=== PATIENT | female | born 1985 | race Caucasian/White ===

== ENCOUNTER 2017-12-30 06:14 | Inpatient (IN) ==
[2017-12-30] MEDS ORDERED: Albuterol 2.5 MG/3 ML NEBULIZER IH ONE (06:27)
[2017-12-30] MEDS ORDERED: CeFAZolin Syr 2,000MG/20 ML 2,000 MG/20 ML SYRINGE IVPB ONE (06:27)
[2017-12-30] MEDS ORDERED: Ringers Solution, Lactated 1,000 ML IVC SCH ×2 (06:30→11:41)
[2017-12-30] MEDS ORDERED: *HR* FentaNYL (PF) 100 MCG/2 ML VIAL ONE ×2 (07:11→09:50)
[2017-12-30] MEDS ORDERED: *HR* Propofol 200 MG/20 ML VIAL IVP ONE (07:11)
[2017-12-30] MEDS ORDERED: *HR* Midazolam HCl 2 MG/2 ML VIAL ONE (07:11)
[2017-12-30] MEDS ORDERED: Ondansetron 4 MG/2 ML VIAL ONE (07:13)
[2017-12-30] MEDS ORDERED: *HR* Rocuronium Bromide 50 MG/5 ML VIAL ONE (07:13)
[2017-12-30] MEDS ORDERED: Lidocaine -MPF 2% 2 ML VIAL ONE (07:13)
[2017-12-30] MEDS ORDERED: Dexamethasone 4 MG/ML VIAL ONE (07:13)
[2017-12-30] MEDS ORDERED: Lidocaine -MPF 4% 5 ML AMPUL ONE (07:13)
--- NOTE | 2017-12-30 07:26 | Anesthesia Evaluation PreOp ---
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 History: Denies Any Significant HX Other Medical History: GERD, Other (bipolar, anxiety) Anesthesia History: No Prior Anesthetic Complications, Past Anesthesia (Pulm valve replacement, c/s x 2, tubal) Test: Negative (12/24/2017) Alcohol Use: occasionally Drug use: none Medications and Allergies Levonorgestrel [Mirena] 52 mg IY NOW 05/06/17 [History] Metoprolol [Lopressor] 25 mg PO DAILY PRN 05/06/17 [History] Topiramate [Topamax] 200 mg PO HS 05/06/17 [History] diazePAM [Valium] 5 mg PO TID PRN 05/06/17 [History] Cholecalciferol (D-3) [Vitamin D] 1,000 unit PO DAILY 12/30/17 [History] Cyclobenzaprine [Flexeril] 10 mg PO HS PRN 12/30/17 [History] Ibuprofen [Ibuprofen] 800 mg PO TID PRN 12/30/17 [History] [place] Carbonate ER [Eskalith] 900 mg PO HS 12/30/17 [History] 3 Allergy/AdvReac Type Severity Reaction Status Date / Time latex Allergy Rash Verified 10/10/17 10:27 codeine AdvReac Vomiting Verified 12/30/17 07:10 - Meds/Allergy Pre-op Review Medications Reviewed: Yes Allergies Reviewed: Yes Beta Blockers on Current Med List: Yes If Beta Blockers taken, Date/Time (Last Dose taken): takes prn Anesthesia Results - Labs Laboratory Tests 12/24/17 12/24/17 12/24/17 09:51 09:51 09:51 WBC 7.6 Hgb 14.0 Hct 42.7 Plt Count 136 L PT 12.4 H INR 1.1 APTT 30.9 Sodium 138 Potassium 4.6 BUN 8 Creatinine 0.83 Serum , Qual 12/24/17 09:51 WBC Hgb Hct Plt Count PT INR APTT Sodium Potassium BUN Creatinine Serum , Qual Negative - Imaging EKG: report reviewed (10/23/2017 SINUS RHYTHM WITH SHORT [place] INTERVAL RIGHT BUNDLE BRANCH BLOCK [120+ ms QRS DURATION, UPRIGHT V1, 40+ ms S IN I/aVL/V4/V5/ V6]) Additional studies: 06/20/15 ECHO LVEF 55-60% normal LV diasolic function normal LV diastolic function normal RV structure and function mildly dilated LA and RA Mild pulmonic stenosis Mild pulmonic reg. 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
--- NOTE | 2017-12-30 07:30 | History & Physical Report ---
Date of Encounter: 12/30/17 Time of Encounter: 07:29 24 Hour HP Update - Instructions Instructions: If the History and Physical is less than 30 days old and was completed prior to A.M. admission and or procedure and has NOT been updated on calendar day of procedure please complete this update prior to performing procedure. - Update Patient reports changes in Medical Condition: No Changes in examination, assessment, or condition: No Changes in Medication: No Preop tests/diagnostics Reviewed: Yes Surgery Remains Indicated: Yes Consent for Planned Operative Procedure(s) Verified: Yes - Pre-Operative Checklist Preoperative Checklist Indicated: Yes Prophylactic Antibiotic Ordered: Yes Home Medications Include Beta Esther: No Beta Esther Taken Today (Day of Surgery): No Beta Esther Taken Yesterday (Day Prior to Surgery): No Is VTE Prophylaxis Indicated?: Yes
[2017-12-30] MEDS ORDERED: Acetaminophen IV 1,000 MG/100 ML INFUS..BTL ONE (07:47)
[2017-12-30] MEDS ORDERED: ROPIVACAINE HCL/PF 0.5% 30 ML VIAL ONE (08:55)
[2017-12-30] MEDS ORDERED: Neostigmine Methylsulfate 3 MG/3 ML SYRINGE ONE (09:38)
[2017-12-30] MEDS ORDERED: *HR* Promethazine 25 MG/ML VIAL IVP PRN (10:01)
[2017-12-30] MEDS ORDERED: *HR* OxyCODONE/APAP 5/325 TABLET PO PRN (10:01)
[2017-12-30] MEDS ORDERED: *HR* FentaNYL (PF) 100 MCG/2 ML VIAL IVP PRN (10:01)
[2017-12-30] MEDS ORDERED: Ketorolac 30 MG/ML VIAL IVP ONE (10:33)
--- NOTE | 2017-12-30 11:07 | OB/GYN Procedure Note ---
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 An incision was made into the abdomen down through the subcutaneous tissue, muscular fascia and peritoneum. Once inside the abdominal cavity, we observed that the omentum was adherent to the anterior abdominal wall. I suture ligated the adherent part and freed the omentum. I observed the pelvic cavity and noted that the uterus was severely adherent to the anterior abdominal wall and the bladder. I used the bovie and dissected off the uterus from the abdominal wall. I then used a combination of blunt and sharp dissection to free the uterus from the bladder. After the uterus was freed, I grasped on the fundus with a double-toothed tenaculum with upward traction. The round ligaments on either side were identified and individually dissected and ligated with the Ligasure device. This allowed us to then create a bladder flap by both blunt and sharp dissection. The fallopian tube and ovarian ligament were isolated through the broad ligament from the uterine body and ligated with the Ligasure. We then skeletonized the uterine vessels on either side and carefully dissected the bladder flap anteriorly. Posteriorly, the peritoneum was dissected down toward the uterosacral ligaments. The Ligasure device was placed at each isthmic portion of the cervical body junction where the uterine arteries adjoined the uterus. These were clamped, ligated and divided. The remainder of the uterus was then removed by the clamp- cut-ligation technique using #0 Vicryl on all major pedicles. With removal of the uterus, the vaginal cuff was closed in the usual manner. Hemostasis was then inspected and secured throughout the entire area. The ovaries were left in situ. The patient tolerated the operation nicely. There were no complications associated with this surgical procedure to this point. The sponge count was correct times 2 at this time. The To catheter was inspected and clear urine was noted. Having removed all instruments and packs, we then began closure of the abdomen. The fascia was closed with #0 Vicryl in a running continuous manner and the subcutaneous tissue was also closed with #3-0 Vicryl. The skin was closed with #4-0 vicryl. The patient tolerated the operation nicely and was then taken to the Recovery Room in good condition.
--- NOTE | 2017-12-30 11:15 | Anesthesia Evaluation Post Op ---
Date of Encounter: 12/30/17 Time of Encounter: 11:14 - Vital Signs Vital Signs: Vital Signs/O2 Sat/Glucose, Most Recent Temp Pulse Resp BP Pulse Ox 97.6 F 66 12 123/93 98 12/30/17 10:58 12/30/17 11:08 12/30/17 11:08 12/30/17 11:08 12/30/17 11:08 - Lungs Lungs: Clear Ascult./Percussion - Airway Airway: Non-obstructed - Cardiovascular Regular Rate - Mental Status Mental Status: Alert & Oriented, Answers Appropriately - Pain Pain Scale used: Kera (Faces) - Nausea Vomiting Nausea Vomiting: Not Present - Hydration Hydration: NPO - Discharge PostOp Status: Transfer Patient to floor
--- NOTE | 2017-12-30 11:24 | Anesthesia Procedures ---
Date of Encounter: 12/30/17 Time of Encounter: 10:10 Procedures: Anesthesia - Nerve Block Procedure Date: 12/30/17 Time: 10:10 Allergies/Adv Reactions: Latex and codeine Pre-op Diagnosis: Dysfunctional Uterine Bleeding Surgical Procedure: MANUEL Checklist: Correct Patient Identifier, Correct procedure, History checked Blood Thinner: No Monitor Applied: EKG, BP, Pulse Oximetry Supplemental Oxygen via Nasal Cannula (L/min): 2 (ETT) Indication: Post Op Analgesia Pre-op Neuro Deficits: No Block Type: Other (Bilateral Mid-Axillary TAP Blocks) Catheter placed: No Sterile Technique: Yes Ultrasound used: Yes Anatomy identified: Yes Visual spread of Local: Yes Neuro Stimulation: No Blood on Needle Aspiration: No Smooth Injection of Local: Yes Pain with Injection of Local: No (Unable to assess pt under GA) Prep: Chlorhexadine Needle: 21 x 100 mm Stimuplex Local: Ropivacaine (30mL of 0.25% Ropivacaine with 4mg Decadron admnistered on R and L Side (60mL Total)) Volume (cc): 60 Number of Attempts: 1 Complications: None/effective block Vitals: Refer to anesthesia documentation sheet.
[2017-12-30] MEDS ORDERED: Ondansetron 4 MG/2 ML VIAL IVP PRN (11:41)
[2017-12-30] MEDS ORDERED: diazePAM 5 MG TABLET PO PRN (11:41)
[2017-12-30] MEDS ORDERED: Naloxone 0.4 MG/ML INJ IVP PRN (11:41)
[2017-12-30] MEDS: *HR* HYDROmorphone (PF) 1 MG/ML SYRINGE IVP PRN ×3 (11:59→18:39)
[2017-12-30] MEDS: *HR* OxyCODONE/APAP 5/325 TABLET PO PRN (15:02)
[2017-12-30] MEDS: Lithium Carbonate ER 450 MG TABLET.ER PO SCH (21:03)
[2017-12-30] MEDS: Topiramate 100 MG TABLET PO SCH (21:03)
[2017-12-31] MEDS: *HR* HYDROmorphone (PF) 1 MG/ML SYRINGE IVP PRN (00:24)
[2017-12-31] MEDS ORDERED: Simethicone 80 MG TAB.CHEW PO PRN (00:40)
[2017-12-31] MEDS ORDERED: *HR* Promethazine 25 MG/ML VIAL IVP PRN (05:25)
[2017-12-31] MEDS: *HR* OxyCODONE/APAP 5/325 TABLET PO PRN ×3 (05:42→18:43)
[2017-12-31 05:56] LABS: Basophils % 0.1 %; Immature Granulocytes % 0.5 % (0-4); Lymphocytes % 4.9 %; Mean Corpuscular HGB Conc 32.2 g/dL (31.6-35.5); Mean Corpuscular Hemoglobin 30.9 pg (28.0-33.3); Mean Platelet Volume 12.8 fL (9.4-12.4); Monocytes # 0.8 K/mcL (0.0-1.3); Monocytes % 4.1 %; Neutrophils # 17.6 K/mcL (1.6-8.9); Platelet Count 162 K/mcL (140-400); Red Blood Count 3.75 M/mcL (3.82-4.97); Red Cell Distribution Width 14.1 % (11.5-14.5); Segmented Neutrophils % 90.4 %
[2017-12-31 06:06] LABS: Hemoglobin 11.6 g/dL (11.5-15.4)
--- NOTE | 2017-12-31 06:53 | OB/GYN Progress Note ---
Date of Encounter: 12/31/17 Time of Encounter: 06:50 - Assessment and Plan (1) Status post hysterectomy Current Visit: Yes Status: Acute s/p MANUEL for AUB, pelvic pain, pelvic adhesive disease, POD#1, doing well, patient has not been able to ambulate much, encouraged to ambulate, good urine output, ok for breakfast, Toradol on board and after breakfast, can switch to PO meds, anticipate discharge tomorrow Subjective - Subjective Patient reports: voiding normally, pain well controlled Objective - Vital Signs Latest vital signs: Vital Signs Temp Pulse Pulse Resp BP Pulse Ox 12/31/17 05:00 97.4 F L 84 84 16 112/74 100 12/31/17 00:24 16 12/30/17 23:30 97.9 F 80 14 107/74 99 12/30/17 20:45 97.6 F 83 14 115/75 97 12/30/17 13:30 98.6 F 81 81 12 121/75 97 12/30/17 12:30 98.3 F 84 14 112/75 95 12/30/17 12:00 98.6 F 76 12 117/83 97 12/30/17 11:30 99.0 F 71 12 118/85 98 12/30/17 11:08 66 12 123/93 98 12/30/17 10:58 97.6 F 71 16 126/88 97 12/30/17 10:48 68 16 128/88 96 12/30/17 10:38 71 16 132/95 100 12/30/17 10:28 98.7 F 64 16 130/89 100 Intake and Output 12/30/17 12/30/17 12/31/17 15:59 23:59 07:59 Intake Total 20 / 20 720 / 720 Output Total 510 / 510 1550 / 1550 1050 / 1050 Balance -490 / -490 -830 / -830 -1050 / -1050 Intake: IV Fluids 20 / 20 Ancef Syringe 2,000 MG/20 ML 2, 20 / 20 000 mg In 20 ml @ 200 mls/hr IVPB PREOP ONE Rx#:[id number] Oral 720 / 720 Output: Estimated Blood Loss 110 / 110 Catheter 400 / 400 1550 / 1550 1050 / 1050 Other: Weight 73.164 kg - I&O's I&O's: Intake & Output 08/21/18 08/22/18 08/23/18 08/24/18 23:59 23:59 23:59 23:59 Intake Total 740 / 740 Output Total 2059 1050 / 1050 Balance -1320 / -1320 -1050 / -1050 Weight 73.164 kg - Exam Extremities: Present: normal Abdomen: Present: soft Incision OB: Present: intact, dressed - Labs Labs: Abnormal lab results WBC 19.5 K/mcL (4.3-11.1) H D 12/31/17 05:30 RBC 3.75 M/mcL (3.82-4.97) L 12/31/17 05:30 MPV 12.8 fL (9.4-12.4) H 12/31/17 05:30 Neutrophils # 17.6 K/mcL (1.6-8.9) H 12/31/17 05:30 Consult Discharge Plan - Plan Referrals: Shawna Spicer [Primary Care Provider] -
[2017-12-31] MEDS ORDERED: Ketorolac 30 MG/ML VIAL IVP ONE (07:04)
[2017-12-31] MEDS: Ibuprofen 600 MG TABLET PO PRN ×2 (14:30→20:11)
[2017-12-31] MEDS: Lithium Carbonate ER 450 MG TABLET.ER PO SCH (20:11)
[2017-12-31] MEDS: Topiramate 100 MG TABLET PO SCH (20:12)
[2018-01-01] MEDS: *HR* OxyCODONE/APAP 5/325 TABLET PO PRN ×2 (01:20→08:13)
[2018-01-01] MEDS: Ibuprofen 600 MG TABLET PO PRN (05:18)
--- NOTE | 2018-01-01 10:29 | Discharge Summary ---
Date of Encounter: 01/01/18 Time of Encounter: 10:28 - Discharge Diagnosis (1) Status post hysterectomy Priority: Primary Status: Acute Comments: s/p MANUEL, POD#2, patient is doing very well, ambulating, tolerating PO, good urine output, ok for discharge - Discharge Medications Home Medications: Levonorgestrel [Mirena] 52 mg IY NOW 05/06/17 [History] Metoprolol [Lopressor] 25 mg PO DAILY PRN 05/06/17 [History] Topiramate [Topamax] 200 mg PO HS 05/06/17 [History] diazePAM [Valium] 5 mg PO TID PRN 05/06/17 [History] Cholecalciferol (D-3) [Vitamin D] 1,000 unit PO DAILY 12/30/17 [History] Cyclobenzaprine [Flexeril] 10 mg PO HS PRN 12/30/17 [History] Ibuprofen [Ibuprofen] 800 mg PO TID PRN 12/30/17 [History] [place] Carbonate ER [Eskalith] 900 mg PO HS 12/30/17 [History] Allergies/Adverse Reactions: 3 Allergy/AdvReac Type Severity Reaction Status Date / Time latex Allergy Rash Verified 10/10/17 10:27 codeine AdvReac Vomiting Verified 12/30/17 07:10 Data Procedures and tests throughout hospitalization: Laboratory Tests 12/31/17 05:30 WBC 19.5 H D RBC 3.75 L Hgb 11.6 D Hct 36.0 MCV 96.0 MCH 30.9 MCHC 32.2 RDW 14.1 Plt Count 162 MPV 12.8 H Immature Gran % 0.5 Seg Neutrophils % 90.4 Lymphocytes % 4.9 Monocytes % 4.1 Eosinophils % 0.0 Basophils % 0.1 Neutrophils # 17.6 H Lymphocytes # 1.0 Monocytes # 0.8 Eosinophils # 0.0 Basophils # 0.0 Date of admission: 12/30/17 11:41 Primary care physician: Shawna Spicer - Patient Status Disposition: Home, Self-Care Condition: Good Functional capacity at discharge: independent ambulation Overall status at discharge: patient is progressing back to baseline - Discharge Instructions Follow Up With: Shawna Spicer [Primary Care Provider] - Hospital 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
== END 2018-01-01 12:00 | disposition home or self-care (01) | DRG 513 ==
LOC: SAMDAY 06:14 → 1NENUOBS 11:41
PROVIDERS: ADMIT Student in an Organized Health Care Education/Training Program; ATTEND Student in an Organized Health Care Education/Training Program

== ENCOUNTER 2020-06-29 23:12 | Observation (INO) ==
[2020-06-30 00:03] LABS: Basophils # 0.1 K/mcL (0.0-0.2); Basophils % 0.7 %; Eosinophils # 0.1 K/mcL (0.0-0.6); Eosinophils % 0.6 %; Hematocrit 43.5 % (35.3-44.9); Hemoglobin 14.6 g/dL (11.5-15.4); Immature Granulocytes % 0.7 % (0-4); Mean Corpuscular HGB Conc 33.6 g/dL (31.6-35.5); Mean Corpuscular Hemoglobin 31.4 pg (28.0-33.3); Mean Corpuscular Volume 93.5 fL (83.0-100.0); Mean Platelet Volume 12.1 fL (9.4-12.4); Monocytes # 0.5 K/mcL (0.0-1.3); Monocytes % 5.7 %; Neutrophils # 5.9 K/mcL (1.6-8.9); Platelet Count 172 K/mcL (140-400); Red Blood Count 4.65 M/mcL (3.82-4.97); Red Cell Distribution Width 12.8 % (11.5-14.5); Segmented Neutrophils % 69.3 %; White Blood Count 8.5 K/mcL (4.3-11.1)
[2020-06-30 00:13] LABS: BUN/Creatinine Ratio 16 (6-26); Blood Urea Nitrogen 13 mg/dL (6-20); Carbon Dioxide 19 mEq/L (23-29); Chloride 106 mEq/L (98-107); Glucose 109 mg/dL (70-105); Osmolality,Calculated 287 (280-300); Potassium 3.7 mEq/L (3.5-5.1); Sodium 138 mEq/L (136-145); eGFR For African Americans > 60 (> 60); eGFR For Non-African Americans > 60 (> 60)
[2020-06-30 00:14] LABS: Troponin I < 0.03 ng/mL (< 0.04)
[2020-06-30] MEDS ORDERED: 0.9 % Sodium Chloride 1,000 ML IVC ONE (00:15)
[2020-06-30] MEDS ORDERED: Ondansetron 4 MG/2 ML VIAL IVP PRN (03:33)
[2020-06-30] MEDS ORDERED: Acetaminophen 325 MG TABLET PO PRN (03:33)
[2020-06-30] MEDS ORDERED: Naloxone 0.4 MG/ML INJ IVP PRN (03:33)
[2020-06-30 07:18] VITALS: BP 111/75
[2020-06-30 07:33] LABS: Basophils % 0.7 %; Eosinophils # 0.1 K/mcL (0.0-0.6); Eosinophils % 0.8 %; Hemoglobin 13.9 g/dL (11.5-15.4); Immature Granulocytes % 0.7 % (0-4); Lymphocytes # 1.1 K/mcL (0.6-4.6); Lymphocytes % 18.7 %; Mean Corpuscular HGB Conc 33.1 g/dL (31.6-35.5); Mean Corpuscular Hemoglobin 31.2 pg (28.0-33.3); Mean Corpuscular Volume 94.4 fL (83.0-100.0); Mean Platelet Volume 12.4 fL (9.4-12.4); Monocytes # 0.4 K/mcL (0.0-1.3); Monocytes % 7.3 %; Neutrophils # 4.3 K/mcL (1.6-8.9); Platelet Count 144 K/mcL (140-400); Red Blood Count 4.45 M/mcL (3.82-4.97); Red Cell Distribution Width 12.8 % (11.5-14.5); Segmented Neutrophils % 71.8 %
[2020-06-30 07:54] LABS: BUN/Creatinine Ratio 17 (6-26); Blood Urea Nitrogen 12 mg/dL (6-20); Carbon Dioxide 21 mEq/L (23-29); Chloride 109 mEq/L (98-107); Glucose 89 mg/dL (70-105); Osmolality,Calculated 285 (280-300); Phosphorous 2.8 mg/dL (2.7-4.5); Potassium 4.3 mEq/L (3.5-5.1); Sodium 138 mEq/L (136-145); Troponin I < 0.03 ng/mL (< 0.04); eGFR For African Americans > 60 (> 60); eGFR For Non-African Americans > 60 (> 60)
[2020-06-30 09:26] LABS: Thyroid Stimulating Hormone 4.295 mcIU/mL (0.340-5.600)
== END 2020-06-30 10:02 | disposition home or self-care (01) ==
LOC: 3BNU 23:12 → EMEROOARM 23:12 → SUATTDRO 06-30 02:31 → 3BNU 06-30 02:48
PROVIDERS: ADMIT Internal Medicine; ATTEND Registered Nurse